=== PATIENT | male | born 1960 | race Caucasian/White ===

== ENCOUNTER 2017-04-06 17:17 | Inpatient (IN) | payer BC, OTHER ==
[~2017-04-06] VITALS: Ht 182.9 cm; Wt 77.3 kg
[~2017-04-06 17:17] MED LIST: DIAZ10TA PO
[2017-04-06 17:54] LABS: BASO % 0.9 %; BASO ABS # 0.05 K/uL (0-0.2); COMPLETE YES; EOS % 3.1 %; HEMATOCRIT 42.8 % (42-52); IG% 0.2 %; LYMPH % 24.3 %; MEAN CELL VOLUME 83.6 fL (80-100); MEAN CORPUSCULAR HEMOGLOBIN 28.1 pg (25-34); MEAN CORPUSCULAR HGB CONC 33.6 g/dl (32-36); MONO % 8.7 %; NEUT % 62.8 %; PLATELET COUNT 157 K/uL (130-400); RED BLOOD COUNT 5.12 M/uL (4.7-6.1); WHITE BLOOD COUNT 5.75 K/uL (4.8-10.8)
[2017-04-06 18:01] LABS: BUN/CREATININE RATIO 16.1 (10-20); CALCIUM 9.4 mg/dl (8.5-10.1); CREATININE 1.1 mg/dl (0.60-1.40); MAGNESIUM 2.4 mg/dl (1.8-2.4); POTASSIUM 3.9 mmol/L (3.5-5.1)
[2017-04-06 18:03] LABS: PARTIAL THROMBOPLASTIN RATIO 1.4; PROTHROMBIN TIME (PATIENT) 11.2 SECONDS (9.0-12.0)
[2017-04-06] MEDS ORDERED: MISCCAP63 PO (18:07)
[2017-04-06] MEDS ORDERED: OMEG10007 PO (18:07)
[2017-04-06] MEDS ORDERED: [UNRECOGNIZED DRUG - OTHER] PO (18:07)
[2017-04-06 18:12] LABS: ALB/GLOB RATIO 0.7 (0.9-2); THYROID STIMULATING HORMONE 1.98 uIu/ml (0.300-4.500)
[2017-04-06 18:14] LABS: ISTAT HEMOGLOBIN 13.3 g/dl (14.0-18.0); ISTAT IONIZED CALCIUM 1.21 mmol/l (1.12-1.32)
--- NOTE | 2017-04-06 18:14 | EMERGENCY ROOM VISIT NOTE ---
History First contact with patient: 17:31 Chief Complaint: CARDIAC ASSESSMENT Stated Complaint: HEART FLUTTERING,FATIGUE,WEAKNESS Nursing Triage Summary: pt has had some intermittent " fluttering" since friday makes him feel weak. 4 weeks ago awoke with a sore throat and fluish, also had a stiff neck. after a week or more, started to feel better. last week started to have the feeling in his chest and weakness History of Present Illness The patient is a 56 year old male who presents to the Emergency Room via private vehicle accompanied by with complaints of "heart fluttering, fatigue, weakness". The patient states that beginning 4 weeks ago, around he woke up with a sore throat, followed by the sensation of a head cold. He states that the following day he had a stiff neck, and then a headache. He states that he had fatigue at that time. He states that this seemed to resolve last week, however this past Friday or he developed a "sluggish" sensation in his chest and the sensation of feeling weak and his legs felt very heavy as if they were made of lead. He then states that there is also a fluttering sensation in the chest. He states that he sat down and took his pulse, and noticed that it was irregular as if it would miss beats. He states that today he went out to while walk, and then did pull ups and sprints of which is included in his normal routine. During his sprints he had to stop because the sensation in his chest was too pronounced, and he felt very fatigued. He states that there is also associated shortness of breath. He denies any chest pain. He does note that he has had several ticks removed from his body over the past few months. Review of Systems A complete 10-point Review of Systems was discussed with the patient, with pertinent positives and negatives listed in the History of Present Illness. All remaining Review of Systems questions can be considered negative unless otherwise specified. Past Medical/Surgical History Medical Problems: (1) Lyme carditis Spinal surgery in 1986, skin problems. Family History Heart disease Social History Smoking Status: Never Smoker Marital Status: Occupation Status: employed Current/Historical Medications Scheduled Fish Oil ([place]-3), 1 CAP PO DAILY Misc Natural Products ([employer]), 1 CAP PO QAM [Ninja Red], 2 OZ PO QAM Allergies Coded Allergies: No Known Allergies (Unverified , 07/24/10) Physical Exam Vital Signs Date Time Temp Pulse Resp B/P (MAP) Pulse Ox O2 Delivery O2 Flow Rate FiO2 04/06/17 19:02 66 16 131/86 100 Room Air 04/06/17 17:44 79 04/06/17 17:40 96 Room Air 04/06/17 17:33 Room Air 04/06/17 17:22 36.6 85 18 146/80 99 Room Air Physical Exam VITAL SIGNS - Vital signs and nursing notes were reviewed. Afebrile, hypertensive at 146/80, non-tachycardic and is saturating well on room air 99%. GENERAL -56-year-old male appearing his stated age who is in no acute distress. Communicates well with provider and answers questions appropriately. SKIN - Without rashes. No petechial rashes. HEAD - NC/AT. Unremarkable EYES - PERRL with EOMI bilaterally. Sclera anicteric. Palpebral conjunctiva pink and moist with no injection noted. EARS - No deformities of external structures noted on gross examination bilaterally. No pain elicited with palpation of the tragus bilaterally. External auditory canals without discharge or otorrhea. Tympanic membranes pearly wood without retraction or bulging. No fluid or purulent material visualized behind the TM. Handle of malleus, umbo, cone of light, pars tensa/ flaccid all easily visualized. NOSE - Midline and without cyanosis. No epistaxis or purulent drainage noted. Septum midline without deviation or septal hematoma noted. MOUTH/OROPHARYNX - Without perioral cyanosis. Buccal mucosa pink and moist and without leukoplakia. Tongue midline with equal elevation of palate bilaterally. No tonsillar hypertrophy, erythema, or exudates noted. Fair dentition noted. NECK - Neck with FROM. Supple to palpation. No meningismus. No nuchal rigidity. LUNGS - Chest wall symmetric without accessory muscle use, intercostals retractions, or central cyanosis. Normal vesicular breath sounds CTA B/L. No wheezes, rales, or rhonchi appreciated. CARDIAC - RRR with S1/S2. No murmur, rubs, or gallops appreciated. NEUROLOGIC - Cranial nerves II through XII grossly intact. PSYCH - A&O Pt is very pleasant and interacts well with examiner. Medical Decision & Procedures ER Provider Diagnostic Interpretation: CHEST ONE VIEW PORTABLE CLINICAL HISTORY: Heart arrhythmia COMPARISON STUDY: No previous studies for comparison. FINDINGS: The bones soft tissues and hemidiaphragms are normal. The cardiomediastinal silhouette is normal. The lungs are clear. The pulmonary vasculature is normal. IMPRESSION: Negative chest. Electronically signed by: Cl Barajas M.D. 04/06/2017 6:29 PM Dictated Date/Time: 04/06/2017 6:28 PM Laboratory Results 04/06/17 17:35 Red Blood Count 5.12, Mean Corpuscular Volume 83.6, Mean Corpuscular Hemoglobin 28.1, Mean Corpuscular Hemoglobin Concent 33.6, Mean Platelet Volume 10.0, Neutrophils (%) (Auto) 62.8, Lymphocytes (%) (Auto) 24.3, Monocytes (%) (Auto) 8.7, Eosinophils (%) (Auto) 3.1, Basophils (%) (Auto) 0.9, Neutrophils # (Auto) 3.61, Lymphocytes # (Auto) 1.40, Monocytes # (Auto) 0.50, Eosinophils # (Auto) 0.18, Basophils # (Auto) 0.05 04/06/17 17:35 Test 04/06/17 17:35 04/06/17 17:56 04/06/17 18:02 White Blood Count 5.75 K/uL (4.8-10.8) Red Blood Count 5.12 M/uL (4.7-6.1) Hemoglobin 14.4 g/dL (14.0-18.0) Hematocrit 42.8 % (42-52) Mean Corpuscular Volume 83.6 fL (80-100) Mean Corpuscular Hemoglobin 28.1 pg (25-34) Mean Corpuscular Hemoglobin Concent 33.6 g/dl (32-36) Platelet Count 157 K/uL (130-400) Mean Platelet Volume 10.0 fL (7.4-10.4) Neutrophils (%) (Auto) 62.8 % Lymphocytes (%) (Auto) 24.3 % Monocytes (%) (Auto) 8.7 % Eosinophils (%) (Auto) 3.1 % Basophils (%) (Auto) 0.9 % Neutrophils # (Auto) 3.61 K/uL (1.4-6.5) Lymphocytes # (Auto) 1.40 K/uL (1.2-3.4) Monocytes # (Auto) 0.50 K/uL (0.11-0.59) Eosinophils # (Auto) 0.18 K/uL (0-0.5) Basophils # (Auto) 0.05 K/uL (0-0.2) RDW Standard Deviation 38.9 fL (36.4-46.3) RDW Coefficient of Variation 12.9 % (11.5-14.5) Immature Granulocyte % (Auto) 0.2 % Immature Granulocyte # (Auto) 0.01 K/uL (0.00-0.02) Prothrombin Time 11.2 SECONDS (9.0-12.0) Prothromb Time International Ratio 1.0 (0.9-1.1) Activated Partial Thromboplast Time 35.9 SECONDS (21.0-31.0) Partial Thromboplastin Ratio 1.4 Est Creatinine Clear Calc Drug Dose 80.4 ml/min Estimated GFR () 85.3 Estimated GFR (Non- 73.6 BUN/Creatinine Ratio 16.1 (10-20) Calcium Level 9.4 mg/dl (8.5-10.1) Magnesium Level 2.4 mg/dl (1.8-2.4) Total Bilirubin 0.3 mg/dl (0.2-1) Aspartate Amino Transf (AST/SGOT) 23 U/L (15-37) Alanine Aminotransferase (ALT/SGPT) 41 U/L (12-78) Alkaline Phosphatase 130 U/L (45-117) Total Creatine Kinase 68 U/L (39-308) Creatine Kinase MB 0.7 ng/ml (0.5-3.6) Creatine Kinase MB Ratio 1.0 (0-3.0) Total Protein 8.2 gm/dl (6.4-8.2) Albumin 3.4 gm/dl (3.4-5.0) Globulin 4.8 gm/dl (2.5-4.0) Albumin/Globulin Ratio 0.7 (0.9-2) Thyroid Stimulating Hormone (TSH) 1.980 uIu/ml (0.300-4.500) Lyme Disease IgG Antibody POS (NEG) Bedside Troponin I < 0.030 ng/ml (0-0.045) Bedside Hemoglobin 13.3 g/dl (14.0-18.0) Bedside Hematocrit 39 % (42-52) Bedside Sodium 141 mEq/L (135-144) Bedside Potassium 3.6 mEq/L (3.3-5.0) Bedside Chloride 101 mEq/L (101-112) Bedside Total CO2 27 mEq/l (24-31) Anion Gap 17.0 mmol/L (16-25) Bedside Blood Urea Nitrogen 19 mg/dl (7-18) Bedside Creatinine 1.0 mg/dl (0.6-1.3) Bedside Glucose (other) 91 mg/dl (70-99) Bedside Ionized Calcium (Juan R) 1.21 mmol/l (1.12-1.32) Medical Decision Patient was seen and evaluated as above. After obtaining a thorough history and physical examination IV access was initiated and the above workup was performed. Patient presents to us today with a history in the past month of neck pain, headache and generalized malaise. This is concerning for Lyme disease. The patient then states that lately he is developing palpitations/ fluttering in his chest as well as a sensation of sluggishness in the chest. This was identified on EKG to be an AV block, Mobitz 1. I'm concerned this is secondary to Lyme. Lyme test was found to be positive. 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 Ceftriaxone 2 g IV 1. CBC reveals no leukocytosis or anemia. Patient's APTT is slightly elongated. Alkaline phosphatase high at 1:30, creatinine bumped at 1.1, TSH unremarkable. Lyme screen is positive. Chest x-ray reveals no emergent process. I did discuss the case with my attending, and subsequently the inpatient hospitalist who agreed to evaluate the patient. Please refer to further documentation regarding the patient's stay. In evaluation treatment this patient following differential diagnoses were entertained: Lyme carditis, ischemic heart, amyloidosis, sarcoidosis, among others. Impression Primary Impression: Cardiac arrhythmia Additional Impressions: Mobitz (type) I (Wenckebach's) atrioventricular block Lyme carditis Departure Information Dispostion Admitted as an inpatient Condition FAIR Referrals Aaron Cleveland D.O. (PCP) Patient Instructions My [facility] Problem Qualifiers
--- NOTE | 2017-04-06 18:30 | DIAGNOSTIC IMAGING REPORT ---
CHEST ONE VIEW PORTABLE CLINICAL HISTORY: Heart arrhythmia COMPARISON STUDY: No previous studies for comparison. FINDINGS: The bones soft tissues and hemidiaphragms are normal. The cardiomediastinal silhouette is normal. The lungs are clear. The pulmonary vasculature is normal. IMPRESSION: Negative chest. Electronically signed by: Cl Barajas M.D. 04/06/2017 6:29 PM Dictated Date/Time: 04/06/2017 6:28 PM
[2017-04-06 19:09] LABS: LYME DISEASE AB IGG POS (NEG); LYME DISEASE AB IGM POS (NEG)
[2017-04-06] MEDS ORDERED: CEFTRIAXONE SOD INJ 2000 MG in DEXTROSE 5% 50ML IV SCH (19:34)
[2017-04-06] MEDS ORDERED: CEFTRIAXONE SOD INJ 2,000 MG in DEXTROSE 5% 50ML 50 ML IV STA (19:36)
[2017-04-06] MEDS ORDERED: POLYETHYLENE (MIRALAX) 17 GM PACK PO PRN (19:45)
[2017-04-06] MEDS ORDERED: ZOLPIDEM TARTRATE 5 MG TAB PO PRN (19:45)
[2017-04-06] MEDS ORDERED: ACETAMINOPHEN 325 MG TAB PO PRN (19:45)
[2017-04-06] MEDS ORDERED: ALUMINUM/MAGNESIUM/SIMETH (MAALOX MAX) 30 ML UDC PO PRN (19:45)
[2017-04-06] MEDS ORDERED: MAGNESIUM HYDROXIDE SUSP 30 ML UDC PO PRN (19:45)
[2017-04-06] MEDS ORDERED: ONDANSETRON INJ 2 MG/ML 2 ML VIAL IV PRN (19:45)
[2017-04-06] MEDS ORDERED: MoRPHine SULFATE 2 MG/ML CARP IV PRN (19:45)
--- NOTE | 2017-04-06 20:31 | History and Physical ---
History & Physical Date & Time of Service: Apr 06, 2017 at 20:21 Chief Complaint: Heart Fluttering,Fatigue,Weakness Primary Care Physician: Aaron Cleveland D.O. History of Present Illness Source: patient 56 y/o M - denies active medical issues although he does not often see a doctor. The pt has been having headaches, body aches and bouts of weakness approximately since . Over the last 2 days he describes episodes of 'fluttering in his chest" not quite describing palpitations. He states that this is accompanied by acute lower extremity weakness and decreased exercise tolerance. He does not describe chest pain, nausea/vomiting or diaphoresis. He has not had fevers. An EKG obtained in the ER is consistent with Mobitz 1 although it did not show a degree of bradycardia which should necessarily have led to the abve symptoms. Labs were notable for + Lyme antibodies and the pt states that he is frequently in the hou and frequently exposed to ticks. 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 Smoking Status: Never Smoker Marital Status: Housing status: lives with family Occupational Status: employed Allergies Coded Allergies: No Known Allergies (Unverified , 07/24/10) Home Medications Scheduled Fish Oil ([place]-3), 1 CAP PO DAILY Misc Natural Products ([facility]), 1 CAP PO QAM [Ninja Red], 2 OZ PO QAM Review of Systems Constitutional: + weakness, + fatigue, No fever, No chills, No sweats Eyes: No worsening of vision, No eye pain ENT: No hearing loss, No unusual epistaxis, No nasal symptoms Respiratory: No cough, No sputum, No wheezing Cardiovascular: + problem reported (fluttering in chest), No chest pain, No orthopnea, No PND Abdomen: No pain, No nausea, No vomiting Musculoskeletal: + joint pain, + muscle pain, + problem reported (Neck stiffness, joint pain) Genitourinary - Male: No hematuria, No dysuria, No urinary frequency Neurologic: + weakness, + problem reported (acute LE wekness - intermittent severe GREER), No memory loss Psychiatric: No depression symptoms Endocrine: + fatigue Hematologic / Lymphatic: No abnormal bleeding/bruising Integumentary: No rash Allergic / Immunologic: No environmental allergies Physical Exam Vital Signs Date Time Temp Pulse Resp B/P (MAP) Pulse Ox O2 Delivery O2 Flow Rate FiO2 04/06/17 19:02 66 16 131/86 100 Room Air 04/06/17 17:44 79 04/06/17 17:40 96 Room Air 04/06/17 17:33 Room Air 04/06/17 17:22 36.6 85 18 146/80 99 Room Air General Appearance: WD/WN, no apparent distress Head: normocephalic Eyes: normal inspection, PERRL, EOMI ENT: normal ENT inspection, pharynx normal Neck: supple, no JVD Respiratory/Chest: chest non-tender, lungs clear, normal breath sounds Cardiovascular: regular rate, rhythm, no edema, no gallop, no JVD, no murmur, normal peripheral pulses Abdomen/GI: normal bowel sounds, non tender, soft Back: normal inspection, no CVA tenderness, no muscle spasm, normal range of motion Extremities/Musculoskelatal: normal inspection, no calf tenderness, normal capillary refill, no pedal edema, normal range of motion 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, no motor/sensory deficits, alert, normal mood/affect, normal reflexes, oriented x 3 Skin: normal color, warm/dry, no rash Diagnostics Laboratory Results Results Past 24 Hours Test 04/06/17 17:35 04/06/17 17:56 04/06/17 18:02 Range/Units White Blood Count 5.75 4.8-10.8 K/uL Red Blood Count 5.12 4.7-6.1 M/uL Hemoglobin 14.4 14.0-18.0 g/dL Hematocrit 42.8 42-52 % Mean Corpuscular Volume 83.6 80-100 fL Mean Corpuscular Hemoglobin 28.1 25-34 pg Mean Corpuscular Hemoglobin Concent 33.6 32-36 g/dl Platelet Count 157 130-400 K/uL Mean Platelet Volume 10.0 7.4-10.4 fL Neutrophils (%) (Auto) 62.8 % Lymphocytes (%) (Auto) 24.3 % Monocytes (%) (Auto) 8.7 % Eosinophils (%) (Auto) 3.1 % Basophils (%) (Auto) 0.9 % Neutrophils # (Auto) 3.61 1.4-6.5 K/uL Lymphocytes # (Auto) 1.40 1.2-3.4 K/uL Monocytes # (Auto) 0.50 0.11-0.59 K/uL Eosinophils # (Auto) 0.18 0-0.5 K/uL Basophils # (Auto) 0.05 0-0.2 K/uL RDW Standard Deviation 38.9 36.4-46.3 fL RDW Coefficient of Variation 12.9 11.5-14.5 % Immature Granulocyte % (Auto) 0.2 % Immature Granulocyte # (Auto) 0.01 0.00-0.02 K/uL Prothrombin Time 11.2 9.0-12.0 SECONDS Prothromb Time International Ratio 1.0 0.9-1.1 Activated Partial Thromboplast Time 35.9 21.0-31.0 SECONDS Partial Thromboplastin Ratio 1.4 Sodium Level 139 136-145 mmol/L Potassium Level 3.9 3.5-5.1 mmol/L Chloride Level 104 98-107 mmol/L Carbon Dioxide Level 29 21-32 mmol/L Anion Gap 6.0 17.0 16-25 mmol/L Blood Urea Nitrogen 18 7-18 mg/dl Creatinine 1.10 0.60-1.40 mg/dl Est Creatinine Clear Calc Drug Dose 80.4 ml/min Estimated GFR () 85.3 Estimated GFR (Non- 73.6 BUN/Creatinine Ratio 16.1 10-20 Random Glucose 94 70-99 mg/dl Calcium Level 9.4 8.5-10.1 mg/dl Magnesium Level 2.4 1.8-2.4 mg/dl Total Bilirubin 0.3 0.2-1 mg/dl Aspartate Amino Transf (AST/SGOT) 23 15-37 U/L Alanine Aminotransferase (ALT/SGPT) 41 12-78 U/L Alkaline Phosphatase 130 45-117 U/L Total Creatine Kinase 68 39-308 U/L Creatine Kinase MB 0.7 0.5-3.6 ng/ml Creatine Kinase MB Ratio 1.0 0-3.0 Total Protein 8.2 6.4-8.2 gm/dl Albumin 3.4 3.4-5.0 gm/dl Globulin 4.8 2.5-4.0 gm/dl Albumin/Globulin Ratio 0.7 0.9-2 Thyroid Stimulating Hormone (TSH) 1.980 0.300-4.500 uIu/ml Lyme Disease IgG Antibody POS NEG Lyme Disease IgM Antibody POS NEG Bedside Troponin I < 0.030 0-0.045 ng/ml Bedside Hemoglobin 13.3 14.0-18.0 g/dl Bedside Hematocrit 39 42-52 % Bedside Sodium 141 135-144 mEq/L Bedside Potassium 3.6 3.3-5.0 mEq/L Bedside Chloride 101 101-112 mEq/L Bedside Total CO2 27 24-31 mEq/l Bedside Blood Urea Nitrogen 19 7-18 mg/dl Bedside Creatinine 1.0 0.6-1.3 mg/dl Bedside Glucose (other) 91 70-99 mg/dl Bedside Ionized Calcium (Juan R) 1.21 1.12-1.32 mmol/l EKG Initial EKG - sinus , 1' AV - repeat: 2:1 block Impression Assessment and Plan 56 y/o M - denies active medical issues although he does not often see a doctor. The pt has been having headaches, body aches and bouts of weakness approximately since . Over the last 2 days he describes episodes of 'fluttering in his chest" not quite describing palpitations. He states that this is accompanied by acute lower extremity weakness and decreased exercise tolerance. He does not describe chest pain, nausea/vomiting or diaphoresis. He has not had fevers. An EKG obtained in the ER is consistent with Mobitz 1 although it did not show a degree of bradycardia which should necessarily have led to the above symptoms. Labs were notable for + Lyme antibodies and the pt states that he is frequently in the hou and frequently exposed to ticks. 1) Cardiac symptoms with AV block an 2:1 block - has not been symptomatic in hospital however it seems that the symptoms are more prominent with activity. Considering his + Lyme test, we will treat for Lyme carditis. He will be monitored on telemetry, external pacer pads placed - cardiology notified in event he needs a temp pacer. An echo is ordered. 2) Lyme - headaches - body aches and cardiac symptoms as above - Placed on Ceftriaxone 2g daily - will likely need PICC for DC - ID consulted. Full code - Heparin prophylaxis - total time for this admit including review of labs, meds, ekg - discussion with pt and ER attending- 38 min Level of Care Telemetry Resuscitation Status FULL RESUSCITATION VTE Prophylaxis VTE Risk Assessment Done? Y/N: Yes Risk Level: Low Given or contraindicated: Unfractionated heparin SQ
[2017-04-06 21:46] VITALS: BP 120/71; PULSE 76; TEMP 36.6; O2SAT 96
[2017-04-06] MEDS: HEPARIN SOD 5000 UNIT/0.5 ML CARP SQ SCH (22:00)
[2017-04-06] MEDS: NSS + 20MEQ KCL 1000ML 1,000 ML IV SCH (22:40)
[2017-04-06 23:37] VITALS: BP 120/71; PULSE 76; TEMP 36.6; O2SAT 96; Ht 182.9 cm; Wt 77.3 kg
[2017-04-07] VITALS (7 sets, daily range): BP systolic 93–130; BP diastolic 58–87; PULSE 54–73; TEMP 36.3–36.9; O2SAT 96–99
[2017-04-07] MEDS: HEPARIN SOD 5000 UNIT/0.5 ML CARP SQ SCH ×3 (04:50→20:31)
[2017-04-07] MEDS: NSS + 20MEQ KCL 1000ML 1,000 ML IV SCH (08:10)
--- NOTE | 2017-04-07 11:04 | INFECT. DISEASE CONSULTATION ---
DATE OF CONSULTATION: 04/07/2017 DATE OF CONSULTATION: 04/07/2017. REQUESTING PHYSICIAN: Dr. Jewell. HISTORY OF PRESENT ILLNESS: This is a 56-year-old male who was admitted yesterday after he had fevers, sweats, body aches and increasing weakness over the past month. Within the last 2 days prior to admission, he did have fluttering in the chest and palpitations associated with some shortness of breath and intermittent chest pain but no chest pressure. He did have an echocardiogram today and states that it was unremarkable. He did have Lyme titers checked in the Emergency Room, his Lyme screen is positive and western blot is pending. He states he spends a significant amount of time in the hou and has had multiple tick bites over the past few months. He did remove several ticks in November, but is unaware of any tick bites since that time. He denies any rash associated with this. He states in late February he had 6-7 days' worth of fever, subjective shaking and chills and he was waking up with bed clothes and sheets soaking wet. After 7 days this did resolve, but then he began having headaches, myalgias and arthralgias. He continues with this and now has the addition of palpitations. He did have an EKG in the Emergency Room which was consistent with Mobitz type 1 heart block. He is being followed now by cardiology. He does not have any cardiac history. He was started on Rocephin. He states he is feeling mildly better today. He feels well while lying in bed, but if he does get out of bed to ambulate to the bathroom or in the hallway he does have continued episodes of palpitations. All remaining review of systems are unremarkable. He is tolerating antibiotics well. Of note, he does not have medical insurance and he is part of a [employer]. He states he is a relatively new member. PAST MEDICAL AND SURGICAL HISTORY: He denies any past medical or surgical history. FAMILY HISTORY: Noncontributory. SOCIAL HISTORY: Negative for alcohol use, drug use or tobacco use. He does work maintaining a golf course locally. ALLERGIES: He has no known drug allergies. CURRENT MEDICATIONS: Include Rocephin, potassium, subQ heparin, Tylenol, Maalox, milk of magnesia, Ambien, Zofran, morphine and MiraLax. PHYSICAL EXAMINATION: VITAL SIGNS: She is afebrile, pulse 68, respiratory rate 18, blood pressure 112/65, oxygen saturation is 97% on room air. GENERAL: He is awake, alert and oriented x3. He is in no acute distress. HEAD, EYES, EARS, NOSE, AND THROAT: Mucous membranes are moist. Extraocular muscles are intact. There is no nuchal rigidity. HEART: Without murmur. LUNGS: Clear bilaterally. ABDOMEN: Soft, nontender, nondistended. There is no lower extremity edema. SKIN: Without rash. He has full range of motion of his upper and lower extremities. LABORATORY STUDIES: CBC in the ER reveals a white blood cell count of 5.7, hemoglobin 14.4, platelets are 157. Chemistry panel reveals a sodium of 141, potassium 3.6, chloride 101, bicarbonate 27, BUN 19, creatinine 1.0. LFTs are within normal limits. Lyme screen is positive. No micro was done. Chest x-ray was unremarkable. 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 He will be continued on Rocephin. Ideally, I would like to continue him on Rocephin for the entirety of his 28-day course; however, this may become an issue as he does not currently have medical coverage. He is interested in hearing cost and out of pay responsibility as he would prefer to maintain on Rocephin if this is affordable for him. We will follow along with you. Thank you for this consultation. GÓMEZ
--- NOTE | 2017-04-07 11:07 | Progress Note ---
Progress Note Date of Service Apr 07, 2017. Progress Note ID Consult Dictated #[id number] A/P: 1. Lyme Carditis -Continue CTX, continue monitor -Cardiofollowing, echo pending -Concern regarding ability to continue IV therapy as pt has no insurance, would rec 28 days IV ctx if able -Will follow, thank you
--- NOTE | 2017-04-07 11:19 | CARDIOLOGY CONSULTATION ---
DATE OF CONSULTATION: 04/07/2017 PERTINENT HISTORY: Mr. Nugent is a 56-year-old white male admitted yesterday complaining of weakness, fatigue and palpitations. This consultation was ordered to assist in his cardiac management. The patient claims he was in his usual state of health until approximately when he began to note significant fatigue. He noticed myalgias and an occasional stiff neck. The patient's symptoms progressed until the day of presentation. The patient claims that he checked his pulse and noticed it to be irregular. This concerned him, and therefore, he presented to the Emergency Room for further care. Workup in the Emergency Room noted an EKG was sinus rhythm, first-degree AV block, and Mobitz type I AV block. 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 The patient spent a great deal of time in the hou and outdoors. Does occasionally notice ticks. He has had no recent rashes. PAST MEDICAL HISTORY: 1. BPH. 2. Herniated lumbar disc. ALLERGIES: None. MEDICATIONS: 1. Ceftriaxone 2 grams IV daily. 2. Heparin 5000 units subcu q. 8 hours. 3. Potassium supplements. SOCIAL HISTORY: The patient is and lives with his . Works in maintenance of a golf course. Does not use tobacco or alcohol. FAMILY HISTORY: No early coronary artery disease. REVIEW OF SYSTEMS: A 10-point review of systems was negative except for that described above. PHYSICAL EXAMINATION: GENERAL: This is a well-developed, well-nourished white male in no acute distress. VITAL SIGNS: Blood pressure is 112/65 with a regular pulse of 60. Respiratory rate is 18. The patient is afebrile at 36.3 degrees Celsius. Saturation 97% on room air. HEENT: Negative. NECK: Supple with full carotid upstrokes. No carotid bruits. Jugular venous pressure is flat at 90 degrees. There is no thyromegaly. CARDIOVASCULAR: Reveals a regular rhythm with normal S1 and S2. Heart sounds are distant. No obvious murmurs. LUNGS: Clear without rales, rhonchi or wheeze. ABDOMEN: Soft, nontender, without bruits. EXTREMITIES: Reveal intact radial artery and posterior tibial pulses bilaterally. There is no peripheral edema. DATA: CBC notes hemoglobin of 13.3, hematocrit 39.0, white count 5.7, platelet count 157,000. Electrolytes note sodium of 141, potassium 3.6, chloride 101, bicarb 27, BUN 19, creatinine 1.0, glucose 91. Troponin I level is less than 0.3. CK is 68 with an MB fraction of 0.7. EKG on presentation notes sinus rhythm with first-degree AV block and Mobitz type I AV block. hoop maker notes first-degree AV block and evidence of both Mobitz type I and Mobitz type II AV block. Chest x-ray shows no acute disease. Lyme IgG and Lyme IgM are both positive. IMPRESSION: Mr. Nugent was admitted with fatigue, weakness and an abnormal EKG. It is possible that the patient could have Lyme carditis causing his symptoms and EKG changes. If this is the case, would expect EKG changes to improve after several doses of intravenous ceftriaxone. We will continue to follow. PLAN: 1. Agree with intravenous ceftriaxone. 2. Check echocardiogram. 3. Continue to observe on telemetry. 4. No need for external pacemaker at this time. 5. Further recommendation depending on his clinical course.
--- NOTE | 2017-04-07 11:56 | ECHOCARDIOGRAM REPORT ---
*NOTICE TO RECEIVING [employer]Y This information is strictly Confidential and protected under [place] law. [place] law prohibits you from making any further disclosure of this information unless further disclosure is expressly permitted by the written consent of the person to whom it pertains or is authorized by law. A general authorization for the release of medical or other information is not sufficient for this purpose. Hospital accepts no responsibility if the information is made available to any other person, INCLUDING THE PATIENT. Interpretation Summary * Name: HOMA BUNN Study Date: 04/07/2017 08:53 AM BP: 112/65 mmHg * Patient Location: C.2E\S\E203\S\1 HR: 68 * : 1960 (M/d/yyyy) Gender: Male Height: 72 in * Age: 56 yrs Ethnicity: CA Weight: 173 lb * Ordering Physician: Cory Jewell * Referring Physician: Self, Referred * Performed By: Ngozi Hickman RDCS * * Reason For Study: EXERTIONAL INTOLERANCE, HEART BLOCK * BSA: 2.0 m2 * -- Conclusions -- * Left ventricular systolic function is normal. * No regional wall motion abnormalities noted. * Ejection Fraction = 60-65% * No significant vavlular pathology. Procedure Details * A complete two-dimensional transthoracic echocardiogram was performed (2D, M-mode, Doppler and color flow Doppler). Left Ventricle * The left ventricle is normal in size. * There is borderline concentric left ventricular hypertrophy. * Ejection Fraction = 60-65%. * Left ventricular systolic function is normal. * No regional wall motion abnormalities noted. Right Ventricle * The right ventricle is normal size. * The right ventricular systolic function is normal as assessed by tricuspid annular plane systolic excursion (TAPSE) (normal >1.5 cm). Atria * The left atrial size is normal. * Right atrial size is normal. * No ASD detected; PFO is not assessed. Mitral Valve * The mitral valve is normal in structure and function. * There is no mitral valve stenosis. * There is trace mitral regurgitation. Tricuspid Valve * The tricuspid valve is normal in structure and function. * There is no tricuspid stenosis. * There is trace tricuspid regurgitation. Aortic Valve * The aortic valve is normal in structure and function. * There is no significant aortic regurgitation. Pulmonic Valve * The pulmonary valve is not well seen, but the Doppler examination is normal without significant regurgitation or stenosis. Great Vessels * The aortic root is normal size. * The pulmonary artery is not well visualized, but is probably normal size. Pericardium/Pleural * There is no pericardial effusion. Great Vessels * Normal inferior vena cava diameter and respiratory variation suggests normal central venous pressure. MMode 2D Measurements and Calculations IVSd 1.2 cm IVSs 2.0 cm LVIDd 4.9 cm LVIDs 3.3 cm LVPWd 1.3 cm LVPWs 1.5 cm IVS/LVPW 0.90 FS 33.2 % EDV(Teich) 113.5 ml ESV(Teich) 43.6 ml EF(Teich) 61.6 % EDV(cubed) 118.5 ml ESV(cubed) 35.4 ml EF(cubed) 70.1 % % IVS thick 68.6 % % LVPW thick 15.0 % LV mass(C)d 244.9 grams LV mass(C)dI 122.3 grams/m\S\2 LV mass(C)s 236.6 grams LV mass(C)sI 118.2 grams/m\S\2 SV(Teich) 69.9 ml SI(Teich) 34.9 ml/m\S\2 SV(cubed) 83.1 ml SI(cubed) 41.5 ml/m\S\2 Ao root diam 3.4 cm Ao root area 9.1 cm\S\2 LA dimension 3.7 cm LA/Ao 1.1 LVAd ap4 32.9 cm\S\2 LVLd ap4 8.7 cm EDV(MOD-sp4) 105.0 ml EDV(sp4-el) 106.0 ml LVAs ap4 17.9 cm\S\2 LVLs ap4 7.0 cm ESV(MOD-sp4) 39.6 ml ESV(sp4-el) 38.8 ml EF(MOD-sp4) 62.3 % EF(sp4-el) 63.4 % LVAd ap2 38.2 cm\S\2 LVLd ap2 9.3 cm EDV(MOD-sp2) 132.0 ml EDV(sp2-el) 132.6 ml LVAs ap2 21.8 cm\S\2 LVLs ap2 7.8 cm ESV(MOD-sp2) 51.1 ml ESV(sp2-el) 51.7 ml EF(MOD-sp2) 61.3 % EF(sp2-el) 61.0 % LVLd %diff 7.4 % EDV(MOD-bp) 121.1 ml LVLs %diff 10.6 % ESV(MOD-bp) 47.7 ml EF(MOD-bp) 60.7 % SV(MOD-sp4) 65.4 ml SI(MOD-sp4) 32.7 ml/m\S\2 SV(MOD-sp2) 80.9 ml SI(MOD-sp2) 40.4 ml/m\S\2 SV(MOD-bp) 73.5 ml SI(MOD-bp) 36.7 ml/m\S\2 SV(sp4-el) 67.2 ml SI(sp4-el) 33.6 ml/m\S\2 SV(sp2-el) 80.9 ml SI(sp2-el) 40.4 ml/m\S\2 Doppler Measurements and Calculations MV E max bhanu 91.7 cm/sec MV A max bhanu 85.7 cm/sec MV E/A 1.1 MV dec time 0.20 sec Ao V2 max 107.1 cm/sec Ao max PG 4.6 mmHg Ao max PG (full) 1.7 mmHg LV V1 max PG 2.9 mmHg LV V1 max 84.7 cm/sec
[2017-04-07] MEDS ORDERED: NURSING VERBAL MED ORDER ONE (14:15)
--- NOTE | 2017-04-07 19:07 | Family Medicine Progress Note ---
Progress Note Date of Service Apr 07, 2017. Subjective Pt evaluation today including: conversation w/ patient, physical exam, chart review, lab review, review of studies Pain: Denies Voiding: no voiding problems Patient was seen at the bedside. He was comfortably lying down on his bed. Over night on Tele his heart rate went down to 30. He states that this morning he had one episode when had "funny feeling on his chest", which lasted for 5 mins. Denies SOB or chest pain. Tolerating food well. Constitutional: + weakness, No fever Respiratory: No cough, No wheezing, No shortness of breath, No dyspnea on exertion, No dyspnea at rest Cardiovascular: No chest pain, No edema Abdomen: No pain, No nausea, No vomiting, No diarrhea Musculoskeletal: No muscle pain, No swelling Male : No dysuria Skin: No rash Medications Current Inpatient Medications Medications (Trade) Dose Ordered Sig/Mirtha Route Start Time Stop Time Status Last Admin Dose Admin Ceftriaxone Sodium 2000 mg/ Dextrose 70 ml @ 100 mls/hr Q24H IV 04/07/17 20:00 04/16/17 19:59 Heparin Sodium (Porcine) (Heparin Sq 5000 Unit/0.5ml) 5,000 unit Q8H SQ 04/06/17 22:00 05/06/17 21:59 Acetaminophen (Tylenol Tab) 650 mg Q4H PRN PO 04/06/17 19:45 05/06/17 19:44 Al Hydrox/Mg Hydrox/Simethicone (Maalox Max Susp) 15 ml Q4H PRN PO 04/06/17 19:45 05/06/17 19:44 Magnesium Hydroxide (Milk Of Magnesia Susp) 30 ml Q12H PRN PO 04/06/17 19:45 05/06/17 19:44 Zolpidem Tartrate (Ambien Tab) 5 mg HSZ PRN PO 04/06/17 19:45 05/06/17 19:44 Ondansetron HCl (Zofran Inj) 4 mg Q6H PRN IV 04/06/17 19:45 05/06/17 19:44 Morphine Sulfate (MoRPHine SULFATE INJ) 2 mg Q30M PRN IV 04/06/17 19:45 04/20/17 19:44 Polyethylene (Miralax Powder Packet) 17 gm DAILY PRN PO 04/06/17 19:45 05/06/17 19:44 Objective Vital Signs Date Time Temp Pulse Resp B/P (MAP) Pulse Ox O2 Delivery O2 Flow Rate FiO2 04/07/17 16:00 Room Air 04/07/17 15:04 36.9 70 18 127/87 (100) 99 Room Air 04/07/17 12:00 Room Air 04/07/17 11:16 36.6 59 16 93/58 (70) 98 Room Air 04/07/17 08:10 Room Air 04/07/17 07:42 36.3 68 18 112/65 (81) 97 Room Air 04/07/17 04:00 96 Room Air 04/07/17 04:00 36.6 54 20 103/64 (77) 97 Room Air 04/07/17 00:18 36.5 73 20 111/64 (80) 97 Room Air 04/07/17 00:00 96 Room Air 04/06/17 23:37 36.6 76 16 120/71 96 Room Air 04/06/17 21:46 36.6 76 16 120/71 (87) 96 Room Air 04/06/17 21:25 66 16 137/75 100 04/06/17 21:16 58 04/06/17 21:15 47 Physical Exam General Appearance: WD/WN, no apparent distress Neck: supple, trachea midline Respiratory/Chest: chest non-tender, lungs clear, normal breath sounds, no respiratory distress, no accessory muscle use Cardiovascular: regular rate, rhythm, no edema, no murmur Abdomen: normal bowel sounds, non tender, soft Extremities: non-tender, no pedal edema, no calf tenderness Neurologic/Psychiatric: alert, normal mood/affect, oriented x 3 Skin: normal color, warm/dry, no rash Assessment and Plan This is a 56 y/o male with denying any PMHx presented to the hospital complaining of headaches, body aches and bouts of weakness since memorial day. Also complains of episodes of "fluttering on his chest". Labs in ED was notable for positive lyme titers. EKG showed Mobitz 1. Patient had frequently exposed to ticks and had tick bites. Overnight in Tele patient heart rate went down to 30. Pacer was discontinued per Cardiology recommendation. Currently on Tele. * Lyme Carditis - EKG showed first degree AV block (Mobitz I), which is most likely 2/2 lyme carditis. - Both IGG and IGM are positive. Western blot is pending. - Echo was performed today by Dr. Gregg and it was normal - Cardiology on board and continue to appreciate their recommendation - Continue with IV ceftriaxone 2g daily - D/c pacer per cardio recommendation - ID was consulted and recommended to continue with Ceftriaxone - Patient will most likely need PICC line. - Continue to monitor on Tele Social issues - Patient doesn't have medical insurance - Case was discussed with the case managers and she will f/u with him DVT prophylaxis - Patient declined heparin - TEDs - Continue ambulation Code Status - Full code Reviewed: Pt Seen/Exam by Me History continues to feel dizzi with standing up with associated AB block noted on the monitor Constitutional: denies: fever Respiratory: negative: short of breath Cardiovascular: denies chest pain General Appearance: no apparent distress Respiratory: lungs clear, no respiratory distress Cardiovascular: regular rate, rhythm Neurologic/Psychiatric: alert, oriented x 3 Skin Characteristics: warm/dry Assessment/Plan I have reviewed the medical record and performed a history and physical examination. I have discussed the case with Dr. Rasheed. The above note reflects my findings, conclusions, and recommendations.
[2017-04-07] MEDS: CEFTRIAXONE SOD INJ 2,000 MG in DEXTROSE 5% 50ML 50 ML IV SCH (20:29)
[2017-04-08] VITALS: BP 131/69; PULSE 58; TEMP 36.9; O2SAT 98
[2017-04-08 04:00] VITALS: BP 115/73; PULSE 65; TEMP 36.6; O2SAT 98
[2017-04-08] MEDS: HEPARIN SOD 5000 UNIT/0.5 ML CARP SQ SCH ×2 (06:00→14:00)
[2017-04-08 08:23] VITALS: BP 118/61; PULSE 65; TEMP 36.7; O2SAT 99
[2017-04-08 12:01] VITALS: BP 141/82; PULSE 68; TEMP 36.7; O2SAT 99
--- NOTE | 2017-04-08 13:31 | Discharge Instructions ---
Discharge Instructions Date of Service Apr 08, 2017. Admission Reason for Admission: Lyme Carditis, Mobitz (Type) I ([place]) Discharge Discharge Diagnosis / Problem: Lyme Myocarditis Discharge Goals Goal(s): Decrease discomfort, Increase independence, Improve disease control Activity Recommendations Activity Limitations: resume your previous activity . Instructions / Follow-Up Instructions / Follow-Up You are diagnosed with lyme carditis. Please come everyday to the hospital for the antibiotics. You will need antibiotics for total 28 days. Current Hospital Diet Patient's current hospital diet: Regular Diet Discharge Diet Recommended Diet: Regular Diet Pending Studies Studies pending at discharge: yes List of pending studies: western blot Medical Emergencies . Who to Call and When: Medical Emergencies: If at any time you feel your situation is an emergency, please call 911 immediately. . Non-Emergent Contact Non-Emergency issues call your: Primary Care Provider . . "Provider Documentation" section prepared by Federico Rasheed. . VTE Core Measure Inpt VTE Proph given/why not?: Unfractionated heparin SQ
[2017-04-08 15:29] VITALS: BP 129/81; PULSE 61; TEMP 36.7; O2SAT 98
[2017-04-08] MEDS: CEFTRIAXONE SOD INJ 2,000 MG in DEXTROSE 5% 50ML 50 ML IV SCH (16:25)
--- NOTE | 2017-04-08 16:51 | Cardiology Follow-Up ---
Cardiology Follow-Up Date of Service Apr 08, 2017. Cardiology Follow-Up Dictation system down. Pt seen, examined, and chart reviewed. ECG changes improving (as assessed on the monitor). Will need follow ECG.
[2017-04-08 17:12] VITALS: BP 129/81; PULSE 61; TEMP 36.7; O2SAT 98
--- NOTE | 2017-04-08 21:33 | Discharge Summary ---
Discharge Summary Date of Service Apr 08, 2017. (Federico Rasheed MD) Discharge Summary Admission Date: Apr 06, 2017 at 19:44 Discharge Date: Apr 08, 2017 Discharge Disposition: Home Principal Diagnosis: Lyme Carditis (Federico Rasheed MD) Medication Reconciliation New Medications: Ceftriaxone Sod (Rocephin) 1 Gm Inj 1 GM IV DAILY for 26 Days, VIAL Continued Medications: Fish Oil ([place]-3) 1 Ea Cap 1 CAP PO DAILY, CAP Misc Natural Products (Prostate Health) 1 Cap Cap 1 CAP PO QAM [Ninja Red] () 2 OZ PO QAM LIQUID SUPPLEMENT Discharge Exam Review of Systems: Constitutional: No fever, No chills, No sweats, No weakness Respiratory: No cough, No sputum, No wheezing, No shortness of breath, No dyspnea on exertion, No dyspnea at rest Cardiovascular: No chest pain, No edema Abdomen: No pain, No nausea, No vomiting, No diarrhea, No constipation Musculoskeletal: No joint pain, No muscle pain Genitourinary - Male: No dysuria Integumentary: No rash, No itch Physical Exam: General Appearance: WD/WN, no apparent distress Neck: supple, trachea midline Respiratory/Chest: chest non-tender, lungs clear, normal breath sounds, no respiratory distress, no accessory muscle use Cardiovascular: regular rate, rhythm, no edema Abdomen / GI: normal bowel sounds, non tender, soft Extremities: normal inspection, no calf tenderness, no pedal edema Neurologic/Psychiatric: alert, normal mood/affect, oriented x 3 Skin: normal color, warm/dry, no rash (Federico Rasheed MD) No further dizziness noted. Review of Systems: Constitutional: No fever Respiratory: No shortness of breath Cardiovascular: No chest pain Abdomen: No pain Neurologic: No memory loss Physical Exam: General Appearance: no apparent distress Respiratory/Chest: lungs clear, no respiratory distress Cardiovascular: regular rate, rhythm Abdomen / GI: normal bowel sounds, non tender, soft Neurologic/Psychiatric: alert, oriented x 3 Skin: warm/dry (Jacklyn Garcia M.D.) Hospital Course This is 56 y/o male with denying PMHx presented to the hospital complaining of headache, body aches and bouts of weakness since . He states that over the last 2 days he had episodes of 'fluttering in his chest ". Denies palpitation. He states that this is accompanied by acute lower extremity weakness and decreased exercise tolerance. Denies fever, chest pain, nausea/vomiting or diaphoresis. An EKG obtained in the ER is consistent with Mobitz 1. Patient states that he is frequently in the hou and frequently exposed to ticks. Lyme titers are positive. Western blot and rest of the viral serology are pending. Patient was admitted to the hospital for further evaluation. Patient was observed in Tele. He was started on IV ceftriaxone. ID and Cariology was consulted. Echo was performed, which was normal with EF 60-65%. ID recommended Ceftriaxone for 28 days. No acute event in Tele. EKG improved. PICC line was ordered. Regional Coordinator set him up with [facility] in the hospital and he agreed to come everyday for the antibiotic. Patient was stable to be discharge to home. Total Time Spent: Greater than 30 minutes This includes examination of the patient, discharge planning, medication reconciliation, and communication with other providers. (Federico Rasheed MD) Resident Physician Supervision Note: I was present with Dr. Rasheed in bedside. I verified the denson history and physical , reviewed labs and image studies, discussed the case with the resident and agree with the findings and care plan. Total Time Spent: Greater than 30 minutes (40) (Jacklny Garcia M.D.) Discharge Instructions Please refer to the electronic Patient Visit Report (Discharge Instructions) for additional information. (Federico Rasheed MD) Additional Copies To Aaron Cleveland D.O.
[2017-04-09] MEDS ORDERED: CEFT1INJ57 IV (14:08)
[2017-04-09 22:59] LABS: 18KDIGG BAND REACTIVE (NONREACTIVE); 23KDIGG BAND REACTIVE (NONREACTIVE); 23KDIGM BAND REACTIVE (NONREACTIVE); 28KDIGG BAND NONREACTIVE (NONREACTIVE); 30KDIGG BAND NONREACTIVE (NONREACTIVE); 39KDIGG BAND REACTIVE (NONREACTIVE); 39KDIGM BAND REACTIVE (NONREACTIVE); 41KDIGG BAND REACTIVE (NONREACTIVE); 41KDIGM BAND REACTIVE (NONREACTIVE); 45KDIGG BAND REACTIVE (NONREACTIVE); 58KDIGG BAND REACTIVE (NONREACTIVE); 66KDIGG BAND REACTIVE (NONREACTIVE); 93KDIGG BAND REACTIVE (NONREACTIVE)
== END 2017-04-08 17:40 | disposition home or self-care (01) | DRG 869 ==
LOC: C.EDB 17:18 → C.MED 19:44 → ENRESERV 20:30 → C.2E 21:25 → ENRESERV 04-07 07:39 → C.2E 04-07 08:39
PROVIDERS: ADMIT Internal Medicine; ATTEND Family Medicine
PROC: 02HV33Z Insertion of Infusion Device into Superior Vena Cava, Percutaneous Approach (ICD-10-PCS; principal; 2017-04-08)
DX: A69.29 Other conditions associated with Lyme disease (principal); I44.1 Atrioventricular block, second degree; Z60.9 Problem related to social environment, unspecified; N40.0 Benign prostatic hyperplasia without lower urinary tract symptoms; Z79.899 Other long term (current) drug therapy